=== PATIENT | female | born 1965 | race African-American/Black ===

== ENCOUNTER 2019-02-24 15:00 | Outpatient (CLI) | payer BC | END 2019-02-24 15:30 | disposition home or self-care (01) | LOC: D.MAMMO 15:00 | PROVIDERS: ATTEND Emergency Medicine | DX: Z12.31 Encounter for screening mammogram for malignant neoplasm of breast (principal) ==

== ENCOUNTER 2019-03-18 09:00 | Outpatient (CLI) | payer BC | END 2019-03-18 09:30 | disposition home or self-care (01) | LOC: D.MAMMO 09:00 | PROVIDERS: ATTEND Emergency Medicine | DX: R92.8 Other abnormal and inconclusive findings on diagnostic imaging of breast (principal) ==

== ENCOUNTER → 2019-03-30 07:34 | Outpatient (CLI) | payer OTHER | END | disposition home or self-care (01) | LOC: D.US 07:34 | PROVIDERS: ATTEND Family Medicine | DX: R92.8 Other abnormal and inconclusive findings on diagnostic imaging of breast (principal) ==